=== PATIENT | male | born 1975 | race African-American/Black ===

== ENCOUNTER 2021-09-02 13:51 | Emergency (ER) | payer OTHER, SELFPAY ==
[2021-09-02 14:00] VITALS: BP 115/68; PULSE 80; RESP 16; TEMP 36.6; O2SAT 98
--- NOTE | 2021-09-02 14:01 | ED.SKABFB ---
HPI - Skin/Abscess/Foreign Bdy General Chief complaint: Skin/Abscess/Foreign Body Stated complaint: pos skin abcess Time Seen by Provider: 09/02/21 14:01 Source: patient, RN notes reviewed and old records reviewed Mode of arrival: ambulatory Limitations: no limitations History of Present Illness HPI narrative: 46-year-old male presents to [facility] with complaints of swelling to the right cheek with red raised tissue area since Friday. Patient states that he had a small bump of redness to his cheek on Friday with increase in size starting yesterday. patient states that he has been applying some warm compresses and he has applied some Neosporin ointment to area with no drainage noted. Patient has 2cm X2cm area noted to right cheek with raised red tissue noted, no induration of tissue noted small scab area on bump with no drainage noted. patient denies any fevers, chills or sweats, no body aches voiced, patient has had COVID vaccinations. MD complaint: other (swelling on right cheek) Related Data Allergies Allergy/AdvReac Type Severity Reaction Status Date / Time No Known Allergies Allergy Verified 09/02/21 13:59 Review of Systems Review of Systems: CONSTITUTIONAL: Denies fever, chills, or sweats. EYES: Denies visual changes, redness, or discharge. ENT: Denies rhinorrhea, congestion, sore throat, or otalgia. CARDIOVASCULAR: Denies chest pain, palpitations, or edema. RESPIRATORY: Denies cough or dyspnea. GASTROINTESTINAL: Denies abdominal pain, nausea, vomiting, or diarrhea. GENITOURINARY: Denies dysuria or hematuria. SKIN: Denies rash or itching.Positive for abscess to right cheek MUSCULOSKELETAL: Denies back pain, joint pain, or myalgia. NEUROLOGIC: Denies headache, numbness, or weakness. PSYCHIATRIC: Denies anxiety or depression. All systems reviewed & are unremarkable except as noted in HPI and below PMFSH Family History Family History (Updated 09/02/21 @ 14:18 by Julia Meadows NP) Other Breast cancer Social History Social History (Updated 09/02/21 @ 14:18 by Julia Meadows NP) Smoking status: Never smoker Alcohol intake: never Substance use: current Substance use type: marijuana Living arrangements: with family Gender identity (if verbalized by the patient): Male Comments At time of signature, agree with nursing past medical, surgical, social and family history. There is no relevant family history pertinent to the presenting complaint Exam Narrative: GENERAL: Well-appearing, well-nourished, and in no acute distress. HEAD: Normocephalic, atraumatic. EYES: PERRLA and EOMI. ENT: Nares clear, no rhinorrhea or epistaxis. Mucous membranes moist TM's normal with good light reflex, throat pink with no lesions or exudates, no tonsil swelling, no dental pain or any evidence of oral abscess or gum lesions. NECK: Supple. no lymphadenopathy CHEST: Clear to auscultation. No respiratory distress.SAO2 98% on room air with no tachypnea or accessory muscle use HEART: Regular rate and rhythm. No murmur heard. Normal peripheral pulses. ABDOMEN: Soft, nontender, nondistended, normal active bowel sounds. EXTREMITIES: Normal range of motion. No edema. SKIN: Warm, dry, no rash. raised [id number] red abscess to right cheek with no fluctuation of tissue noted, tenderness to palpation no heat or drainage noted, small scab noted on bump. NEURO: No focal deficits. Alert and oriented x3. Course Vital Signs Vital signs: Vital Signs Temperature 36.6 C 09/02/21 14:00 Pulse Rate 80 09/02/21 14:00 Respiratory Rate 16 09/02/21 14:00 Blood Pressure 115/68 09/02/21 14:00 Pulse Oximetry 98 09/02/21 14:00 Temperature 36.6 C 09/02/21 14:00 Pulse Rate 80 09/02/21 14:00 Respiratory Rate 16 09/02/21 14:00 Blood Pressure 115/68 09/02/21 14:00 Pulse Oximetry 98 09/02/21 14:00 MDM - Skin/Abscess/Foreign Bdy Differential Diagnosis Differential diagnosis: Likely abscess of skin or subcutaneous tis
== END 2021-09-02 14:22 | disposition home or self-care (01) ==
PROVIDERS: Emergency Provider Registered Nurse
DX: L02.01 Cutaneous abscess of face (principal)
CPT/HCPCS: 99213; G0463

== ENCOUNTER 2022-05-28 10:30 | Emergency (ER) | payer OTHER, SELFPAY ==
[2022-05-28] VITALS (16 sets, daily range): BP systolic 153–169; BP diastolic 88–96; PULSE 79–93; RESP 16–34; TEMP 36.5; O2SAT 95–100
--- NOTE | ~2022-05-28 | XR_ITS ---
EXAMINATION: XR chest 1V portable DATE: 05/28/2022 11:36 INDICATION: Seizure. TECHNIQUE: A single frontal view of the chest was obtained. COMPARISON: None. FINDINGS: There are airspace opacities in the lower lung zones. No pleural effusion or pneumothorax. The heart size is normal. IMPRESSION: 1. Airspace opacities in the lower lung zones, consistent with atelectasis versus pneumonia. Reviewed, dictated and finalized at location A. IMPRESSION: 1. Airspace opacities in the lower lung zones, consistent with atelectasis vers us pneumonia.
--- NOTE | ~2022-05-28 | CT_ITS ---
EXAMINATION: CT brain wo con INDICATION: Headache COMPARISON: None TECHNIQUE: Standard unenhanced head CT. The dose-length product (DLP) was 1210.67 mGy-cm. The mA was adjusted according to patient size. Iterative reconstruction technique was employed. FINDINGS: There is no intracranial hemorrhage, acute infarction, or abnormal mass lesion. The ventric les are normal. There is no abnormal mass effect or midline shift. The godinez-white matter differentiat ion is normal. The basal cisterns are patent. The orbits are normal. There is mild mucosal thickening of the paranasal sinuses. IMPRESSION: 1. No acute intracranial abnormality. Reviewed, dictated and finalized at location B.
--- NOTE | 2022-05-28 10:42 | ECG_ITS ---
Measurements Intervals [place] Rate: 90 P: 48 LA: 142 QRS: 48 QRSD: 91 T: 34 QT: 331 QTc: 405 Interpretive Statements SINUS RHYTHM LEFT ATRIAL ENLARGEMENT NONSPECIFIC T-WAVE ABNORMALITY NO PREVIOUS ECG AVAILABLE FOR COMPARISON Electronically Signed On 05-28-2022 12:40:33 CDT by Leif Le M.D.
[2022-05-28 10:52] LABS: Hematocrit 43.1 % (42.0-52.0); Hemoglobin 14.8 g/dL (14.0-18.0); Mean Corpuscular HGB Conc 34.3 g/dl (32-36); Mean Corpuscular Hemoglobin 31.9 pg (26-34); Mean Corpuscular Volume 92.9 fl (80-100); Mean Platelet Volume 9.4 fl (7.4-10.4); Platelet Count Result 417 k/mm3 (150-375); Red Blood Count 4.64 M/mm3 (4.6-6.20); Red Cell Distribution Width 13.4 % (11.5-14.5); White Blood Count 23.5 K/mm3 (4.5-10.0)
[2022-05-28 11:00] LABS: Atypical Lymphocytes Present; Band Neutrophils Percent 1 % (0-6); Lymphocytes Absolute Manual 2.35 K/mm3 (1.1-4.5); Monocytes Absolute Manual 1.17 K/mm3 (0.1-0.90); Monocytes Percent Manual 5 % (3-9); Neutrophils Absolute Manual 19.97 K/mm3 (1.3-6.7); Neutrophils Percent Manual 84 % (46-73); Platelet Estimate Adequate (Adequate); Total Cells Counted 100
--- NOTE | 2022-05-28 11:07 | ED.SEIZURE ---
HPI - Seizure General Chief Complaint: Seizure Stated Complaint: seizure like activity Time Seen by Provider: 05/28/22 10:42 History of Present Illness HPI Narrative: HPI limited due to patient's altered mental status This is a 46-year-old male with no known past medical history, brought into the emergency department by EMS after seizure. The patient's , at bedside, provides history for this patient. She notes this morning the patient was lying in bed after having vomited where he normally wakes up in the morning. She then noted an unusual sound, looked on the patient and saw rhythmic shaking concerning for seizure. Afterwards patient appeared confused and she called EMS. She states this is the fourth time this has occurred. It occurred twice in March, once in April and once today. Each of these episodes happens while the patient is asleep. She denies any known change in the patient's health prior to each of these episodes. She states patient does not drink alcohol or use drugs aside from marijuana. Related Data Allergies Allergy/AdvReac Type Severity Reaction Status Date / Time No Known Allergies Allergy Verified 09/02/21 13:59 Review of Systems Review of Systems: CONSTITUTIONAL: Denies fever, chills, or sweats. EYES: Denies visual changes, redness, or discharge. ENT: Denies rhinorrhea, congestion, sore throat, or otalgia. CARDIOVASCULAR: Denies chest pain, palpitations, or edema. RESPIRATORY: Denies cough or dyspnea. GASTROINTESTINAL: Denies abdominal pain, nausea, vomiting, or diarrhea. GENITOURINARY: Denies dysuria or hematuria. SKIN: Denies rash or itching. MUSCULOSKELETAL: Denies back pain, joint pain, or myalgia. NEUROLOGIC: Denies headache, numbness, dizziness, or weakness. PSYCHIATRIC: Denies anxiety or depression. [facility] Family History Family History (Updated 09/02/21 @ 14:18 by Julia Meadows NP) Other Breast cancer Social History Social History (Updated 09/02/21 @ 14:18 by Julia Meadows NP) Smoking status: Never smoker Alcohol intake: never Substance use: current Substance use type: marijuana Gender identity (if verbalized by the patient): Male Exam Narrative: GENERAL: Well-developed, well-nourished, and in no acute distress. HEAD: Normocephalic, atraumatic. EYES: PERRLA and EOMI. ENT: Abrasion of tongue consistent with tongue biting noted, nares clear, no rhinorrhea or epistaxis. Mucous membranes moist. Oropharynx without tonsillar hypertrophy exudate or other lesions. NECK: Supple. No adenopathy or masses. No carotid bruits or JVD CHEST: Clear to auscultation. No respiratory distress. No wheezes rales or rhonchi HEART: Regular rate and rhythm. No murmur heard. Normal peripheral pulses. ABDOMEN: Soft, nontender, nondistended, normal active bowel sounds. EXTREMITIES: Normal range of motion. No edema. SKIN: Warm, dry, no rash. NEURO: No focal deficits. Alert and oriented x2 (self and place), active in all 4 extremities, sensation intact in all 4 extremities, no noted ataxia, no noted nystagmus PSYCH: Normal mood and affect. Course Course Emergency Course: 12:50 - CMP demonstrates mild hypokalemia (3.3) without other abnormality. CT head not concerning for mass or hemorrhage. Patient is now oriented x3. Will PO challenge and ambulate. If patient tolerates, will discharge with Neurology follow up. 13:31 - Patient ambulated and tolerated p.o. Will discharge with [facility]. Vital Signs Vital signs: Vital Signs Temperature 97.7 F 05/28/22 10:32 Pulse Rate 93 05/28/22 10:32 Respiratory Rate 18 05/28/22 10:32 Blood Pressure 153/92 H 05/28/22 10:32 Pulse Oximetry 97 05/28/22 10:32 Oxygen Delivery Room Air 05/28/22 10:32 Temperature 97.7 F 05/28/22 10:32 Pulse Rate 93 05/28/22 10:37 Respiratory Rate 18 05/28/22 10:32 Blood Pressure 153/92 H 05/28/22 10:32 Pulse Oximetry 100 05/28/22 11:02 Oxygen Delivery Room Air 05/28/22 11:02
[2022-05-28 11:10] LABS: INR 1.1; Prothrombin Time 13.5 Seconds (11.1-14.7)
[2022-05-28 11:11] LABS: Partial Thromboplastin Time 25.9 SECONDS (22.3-36.8)
[2022-05-28] MEDS: PROCHLORPERAZINE EDISYLATE 10 MG/2 ML VIAL IV PUSH (11:50)
[2022-05-28] MEDS: levETIRAcetam 1000MG/NACL100ML 1,000 MG/100 ML BAG 400 MG IVPB (11:55)
[2022-05-28 12:05] LABS: Alanine Aminotransferase 33 U/L (6-50); Albumin Level 4.8 g/dL (3.5-5.1); Alkaline Phosphatase 117 U/L (38-126); Anion Gap 14 mmol/L (8-16); Aspartate Amino Transferase 49 U/L (17-59); Bilirubin,Total 0.5 mg/dL (0.2-1.3); Blood Urea Nitrogen 10 mg/dL (9-20); Calcium 8.9 mg/dL (8.4-10.2); Carbon Dioxide 20 mmol/L (22-30); Chloride 104 mmol/L (98-107); Estimated CRCL calculation 63 ml/min; Estimated Glomerular Filt Rate > 60; Glucose 149 mg/dL (65-110); Potassium 3.3 mmol/L (3.4-5.0); Sodium 138 mmol/L (137-145)
[2022-05-28 12:16] LABS: Troponin I 0.023 ng/mL (0.000-0.034)
--- NOTE | 2022-05-28 12:43 | PC.NURSE ---
Pt unable to eat food due to pain in his tongue. ERP aware.
[2022-05-28] MEDS: LIDOCAINE HCL 2% VISC SOLN 15 ML UDC PO (12:58)
--- NOTE | 2022-05-28 13:22 | PC.NURSE ---
pt resting in bed reports able to drink liquids.
--- NOTE | 2022-05-28 13:30 | PC.NURSE ---
pt ambulated aprx 30ft independently without complaints. pt agreeable to discharge home.
--- NOTE | 2022-05-28 13:46 | PC.NURSE ---
pt given blue scrub top and bottom with socks for discharge home
== END 2022-05-28 13:55 | disposition home or self-care (01) ==
PROVIDERS: Emergency Provider Preventive Medicine Aerospace Medicine
DX: R56.9 Unspecified convulsions (principal); S01.512A Laceration without foreign body of oral cavity, initial encounter; X58.XXXA Exposure to other specified factors, initial encounter
CPT/HCPCS: 36415; 70450; 71045; 80053; 84484; 85025; 85610; 85730; 93005; 96365; 96375; 99284; J0780; J1953

== ENCOUNTER 2023-01-17 02:17 | Observation (INO) | payer OTHER, SELFPAY ==
[2023-01-17] VITALS (35 sets, daily range): BP systolic 113–145; BP diastolic 57–96; PULSE 63–84; RESP 8–24; TEMP 36.2–37; O2SAT 94–100; BMI 25.7
--- NOTE | 2023-01-17 | ECHO_ITS ---
Patient Info Name: Crystal Ling Age: 47 years : 1975 Gender: Male Ht: 67 in Wt: 164 lbs BSA: 1.89 m2 HR: 78 bpm BP: 117 / 60 mmHg Heart Rhythm: Sinus Rhythm Technical Quality: Good Exam Date: 01/17/2023 11:09 AM Exam Location: [facility] Exam Room: [facility] Patient Status: Inpatient Admit Date: 01/17/2023 Staff Ordering Physician: Jessica Dickerson Insurance Clerk: Chelsey Ye RDCS Attending Provider: Yuly Vela DO Referring Physician: Jayla RUSH; Exam Type: CA echo doppler color flow Study Info Indications - syncope bradycardia Complete two-dimensional, color flow and Doppler transthoracic echocardiogram is performed. Summary 1. Complete two-dimensional, color flow and Doppler transthoracic echocardiogram is performed. 2. Left ventricular chamber dimension is normal. 3. Left ventricular systolic function is hyperdynamic, estimated at >70%. 4. There is mildly increased left ventricular wall thickness. 5. Left ventricular septal wall motion is normal. 6. Global longitudinal strain is normal at -20 %. 7. There is mild tricuspid valve regurgitation. 8. No pulmonary hypertension, estimated pulmonary arterial systolic pressure is 26 mmHg. 9. There is trace mitral valve regurgitation. 10. There is no aortic valve stenosis. Left Ventricle Left ventricular chamber dimension is normal. Left ventricular systolic function is hyperdynamic, estimated at >70%. There is mildly increased left ventricular wall thickness. Left ventricular septal wall motion is normal. Global longitudinal strain is normal at -20 %. Right Ventricle Right ventricular chamber dimension is normal. Right ventricular systolic function is normal. Left Atria Left atrial chamber dimension is normal. Right Atria Right atrial chamber dimension is normal. Aortic Valve The aortic valve is trileaflet. There is no aortic valve stenosis. There is no aortic valve regurgitation. Pulmonic Valve The pulmonic valve is normal. There is mild pulmonic regurgitation. Mitral Valve The mitral valve has normal leaflets. There is trace mitral valve regurgitation. Tricuspid Valve The tricuspid valve leaflets are normal. There is mild tricuspid valve regurgitation. No pulmonary hypertension, estimated pulmonary arterial systolic pressure is 26 mmHg. Pericardium/Pleural The pericardium appears normal. No constrictive pericarditis present. Inferior Vena Cava Normal inferior vena cava with >50% collapse upon inspiration consistent with normal right atrial pressure, 5 mmHg. Aorta The aortic root size at the sinus of Valsalva is normal. Left Ventricular Outflow Tract Name Value Normal LVOT 2D LVOT Diameter 2.0 cm LVOT Doppler LVOT Peak Gradient 6 mmHg LVOT Mean Gradient 3 mmHg LVOT VTI 24 cm LVOT VTI/AV VTI Ratio 1.0 LVOT Stroke Volume 75 ml LVOT CO 15.8 l/min LVOT CI
--- NOTE | ~2023-01-17 | CT_ITS ---
Noncontrast CT scan of the cervical spine Technique: Multiple contiguous axial [address] images of the cervical spine were obtained and rec onstructed in 2D sagittal and coronal planes on the acquisition scanner. Dose reduction technique was used on this scan by utilizing automated exposure control, adjustment of the mA and/or kV according to patient size. Clinical History: Pain Findings: No fractures or dislocations. There is mild reversal of the normal cervical lordosis. Mult ilevel small disc osteophyte complexes are present in the cervical spine. No emilie spinal canal steno sis or cord compression evident. No prevertebral soft tissue swelling. Impression: No fracture or subluxation of the cervical spine. Minimal degenerative spondylosis. Reviewed, dictated and finalized at location . Impression: No fracture or subluxation of the cervical spine. Minimal degenerative spondylosis.
[2023-01-17] MEDS: levETIRAcetam 1000MG/NACL100ML 1,000 MG/100 ML BAG 400 MG IVPB (02:47)
--- NOTE | 2023-01-17 03:45 | ECG_ITS ---
Measurements Intervals [place] Rate: 74 P: 61 IN: 132 QRS: 49 QRSD: 94 T: 7 QT: 367 QTc: 408 Interpretive Statements SINUS RHYTHM POSSIBLE LEFT ATRIAL ENLARGEMENT ST ELEVATION, PROBABLY EARLY REPOLARIZATION [ST ELEVATION WITH NORMALLY INFLECTED T WAVE] BORDERLINE ECG COMPARED TO ECG 01/17/2023 02:25:54 NO SIGNIFICANT CHANGES Electronically Signed On 01-17-2023 16:43:11 CDT by Jayden Allen M.D.
--- NOTE | 2023-01-17 03:45 | ECG_ITS ---
Measurements Intervals [place] Rate: 65 P: 19 OR: 130 QRS: 51 QRSD: 92 T: 17 QT: 360 QTc: 376 Interpretive Statements SINUS RHYTHM ST ELEVATION, PROBABLY EARLY REPOLARIZATION BORDERLINE ECG COMPARED TO ECG 05/28/2022 10:39:42 ST (T WAVE) DEVIATION NOW PRESENT Electronically Signed On 01-17-2023 16:41:25 CDT by Jayden Allen M.D.
[2023-01-17 03:49] LABS: Alanine Aminotransferase 34 U/L (6-50); Albumin Level 4.5 g/dL (3.5-5.1); Alkaline Phosphatase 101 U/L (38-126); Anion Gap 11 mmol/L (8-16); Aspartate Amino Transferase 35 U/L (17-59); Bilirubin,Total 0.6 mg/dL (0.2-1.3); Blood Urea Nitrogen 14 mg/dL (9-20); Calcium 9.2 mg/dL (8.4-10.2); Carbon Dioxide 21 mmol/L (22-30); Chloride 106 mmol/L (98-107); Estimated CRCL calculation 65 ml/min; Estimated Glomerular Filt Rate > 60; Glucose 179 mg/dL (65-110); Magnesium 2.1 mg/dL (1.6-2.3); Potassium 3.4 mmol/L (3.4-5.0); Sodium 138 mmol/L (137-145)
[2023-01-17] MEDS: PROCHLORPERAZINE EDISYLATE 10 MG/2 ML VIAL IV PUSH (04:02)
[2023-01-17 04:42] LABS: Prothrombin Time 12.9 Seconds (11.1-14.7)
[2023-01-17 04:43] LABS: Partial Thromboplastin Time 28.9 SECONDS (22.3-36.8)
--- NOTE | 2023-01-17 04:57 | ED.GENADULT ---
HPI - General Adult General Chief complaint: Seizure Stated complaint: seizure Time Seen by Provider: 01/17/23 02:20 History of Present Illness HPI narrative: 47-year-old gentleman who presents the emergency department with chief complaint of seizure. Per the family he had 2 seizures that lasted approximately 9 minutes at home patient regained consciousness and upon arrival to the emergency department is back to his baseline neurological status. Patient reports that he has had no chest pain or shortness of breath denies any viral illness does report that he has had issues with his medications this week and has gone several days without them. Patient normally takes Keppra in the evening Related Data Allergies Allergy/AdvReac Type Severity Reaction Status Date / Time No Known Allergies Allergy Verified 01/17/23 02:45 Review of Systems Review of Systems: A 10 system review of systems was completed on the patient and is negative except for what is stated in the HPI. Nursing and ancillary documentation was reviewed. [facility] Family History Family History Other Breast cancer Social History Social History (Updated 09/18/22 @ 14:14 by Lindsey Gonzalez MA) Smoking status: Former smoker Tobacco type: cigarettes Smoking end date: 09/09/12 Alcohol intake: current Alcohol use details: ocassionally Substance use: current Substance use type: marijuana Lack of Transportation: No Lack of Food: Never True Current Housing: I Have Housing Concerned About Future Housing: No Difficulty Paying Gas/Electric Bills: No Difficulty Paying for Meds: No Currently Unemployed: No Education: Trade/Vocational Certificate Difficulty w/ Childcare or Family Care: No Living arrangements: with family Gender identity (if verbalized by the patient): Male Exam Narrative: GENERAL: Well-appearing, well-nourished, and in no acute distress. HEAD: Normocephalic, atraumatic. EYES: PERRLA and EOMI. ENT: Nares clear, no rhinorrhea or epistaxis. Mucous membranes moist. NECK: Supple. CHEST: Clear to auscultation. No respiratory distress. HEART: Regular rate and rhythm. No murmur heard. Normal peripheral pulses. ABDOMEN: Soft, nontender, nondistended, normal active bowel sounds. EXTREMITIES: Normal range of motion. No edema. SKIN: Warm, dry, no rash. NEURO: No focal deficits. Alert and oriented x3. PSYCH: Normal mood and affect. Course Vital Signs Vital signs: Vital Signs Temperature 36.5 C 01/17/23 02:19 Pulse Rate 74 01/17/23 02:19 Respiratory Rate 16 01/17/23 02:19 Blood Pressure 120/74 01/17/23 02:19 Pulse Oximetry 98 01/17/23 02:19 Oxygen Delivery Room Air 01/17/23 02:19 Temperature 36.5 C 01/17/23 02:19 Pulse Rate 68 01/17/23 05:28 Respiratory Rate 16 01/17/23 05:28 Blood Pressure 134/92 H 01/17/23 05:28 Pulse Oximetry 100 01/17/23 05:28 Oxygen Delivery Room Air 01/17/23 02:37 Medical Decision Making MDM Narrative Medical decision making narrative: Differential diagnosis includes seizure, dysrhythmia, electrolyte abnormality Laboratory studies were obtained which did not show significant metabolic abnormality Magnesium was normal potassium was 3.4 EKG showed LVH While in the emergency department the patient had an episode where he became unresponsive and had significant bradycardia. The patient showed a rate of approximately 20 afterwards the patient's heart rate came back to normal sinus rhythm with a rate of 63 Case was discussed with the hospitalist who recommended that the patient have a cardiology consult while inpatient Case was discussed with Dr. Aguilar who will see the patient in the inpatient setting Vital Signs Vital Signs: Vital Signs Temperature 36.5 C 01/17/23 02:19 Pulse Rate 74 01/17/23 02:19 Respiratory Rate 16 01/17/23 02:19 Blood Pressure 120/74 01/17/23 02:
[2023-01-17 05:25] LABS: Basophils Absolute Auto 0.1 K/mm3 (0.0-0.1); Basophils Percent Auto 0.3 % (0.2-1.2); Eosinophils Absolute Auto 0.2 K/mm3 (0-0.3); Eosinophils Percent Auto 1.3 % (0-4.4); Hematocrit 43.2 % (42.0-52.0); Hemoglobin 14.8 g/dL (14.0-18.0); Immature Granulocyte Absolute 0.06 K/mm3 (0.00-0.031); Immature Granulocyte Percent A 0.4 % (0-0.5); Lymphocytes Absolute Auto 4.94 K/mm3 (0.9-3.2); Lymphocytes Percent Auto 29.8 % (18.3-44.2); Mean Corpuscular HGB Conc 34.3 g/dl (32-36); Mean Corpuscular Hemoglobin 31.8 pg (26-34); Mean Corpuscular Volume 92.7 fl (80-100); Mean Platelet Volume 9.8 fl (7.4-10.4); Monocytes Absolute Auto 1.2 K/mm3 (0.1-0.6); Monocytes Percent Auto 7.3 % (2.6-8.5); Neutrophils Absolute Auto 10.1 K/mm3 (1.3-6.7); Neutrophils Percent Auto 60.9 % (45.5-73.1); Platelet Count Result 418 k/mm3 (150-375); Red Blood Count 4.66 M/mm3 (4.6-6.20); White Blood Count 16.6 K/mm3 (4.5-10.0)
--- NOTE | 2023-01-17 06:55 | ADMGEN ---
This patient, Crystal Ling, was admitted to IMU Room 205-02. Patient/family oriented to hospital policies and general routines including ID bracelet, bed and alarms, visiting hours, pain management, procedures, bathroom and other care routines, personal items, smoking policy, room service/diet, and visiting hours. Information on how to activate the Rapid Response Team has been discussed. Patient/Family are encouraged to report perceived risks to care and to ask questions if they do not understand what they are told or what they should do.
--- NOTE | 2023-01-17 07:04 | PC.NURSE ---
At 0345 and 0607 patient had bradycardic episodes into the 30-40 bpm. No medicinal intervention necessary. Patient's heart rate increased when aroused. EDP at bedside both times.
[2023-01-17 08:00] LABS: Troponin I < 0.012 ng/mL (0.000-0.034)
[2023-01-17 11:08] LABS: Appearance Urine Clear (Clear); Bilirubin Urine Negative (Negative); Blood Urine Negative (Negative); Color Urine Yellow (Yellow); Glucose Urine UA Negative (Negative); Ketones Urine Negative (Negative); Leukocyte Esterase Ur Negative LEU/UL (Negative); Nitrate Urine Negative (Negative); Protein Urine Negative (Negative); Specific Grav Ur 1.016 (1.001-1.035); pH Urine 6.5 (5.0-9.0)
[2023-01-17 11:19] LABS: Add Urine Microscopic? NO
--- NOTE | 2023-01-17 11:45 | PM.CNCAR ---
Assessment and Plan Assessment and plan (1) Bradycardia: Code(s): R00.1 - Bradycardia, unspecified Status: Acute Assessment and Plan: Episode of symptomatic junctional bradycardia captured on telemetry in the emergency department this morning. Patient has had complaints of syncope for years but attributed this to seizure disorder. Permanent pacemaker is indicated in this setting. However, patient is hemodynamically stable and by his history does not experience symptoms frequently. Therefore, it is safe to discharge the patient home and schedule pacemaker implantation as an outpatient. Echocardiogram obtained shows normal left ventricular systolic function with no valvular abnormalities. Therefore, no indication for bi V ICD, will plan to proceed withn permanent pacemaker implantation as an outpatient within the next couple of weeks. History of Present Illness History of Present Illness Consult date/time: 01/17/23 11:45 Requesting physician: Jose Ferro MD Consult reason: Other (bradycardia ) Reason For Visit: Seizure/Bradycardic Episode Narrative: Mr. Ling is a 47-year-old male with a history of seizure disorder. He presented to the emergency department early this morning following a seizure witnessed by his . While in the emergency department, his states that his eyes rolled back in his head and he loss consciousness for about a minute. At the same time on telemetry patient was noted to be in a junctional bradycardia with a rate in the 30s. Patient does not have any known history of Hector arrhythmias or any cardiac problems. He does state that he is had multiple syncopal episodes over the years but has attributed them to seizures. His states that his diagnosis with a seizure disorder is recent but patient had self-diagnosed a seizure disorder about 10 years ago. He has only been on anti epileptics since July of last year. He denies any family history of sudden cardiac . Denies any chest pain, palpitations, shortness of breath, swelling, orthopnea, paroxysmal nocturnal dyspnea. At the time of my interview he is lying comfortably in bed with no complaints. Review of Systems Review of Systems: All systems reviewed & are unremarkable except as noted in HPI and below PMFSH Past Medical History Medical History (Updated 01/17/23 @ 12:41 by Jose Lovell MD) Seizure Surgical History Surgical History (Updated 01/17/23 @ 12:35 by Jose Lovell MD) No history of previous surgery Family History Family History Other Breast cancer Social History Social History (Updated 01/17/23 @ 12:35 by Jose Lovell MD) Smoking status: Former smoker Tobacco type: cigarettes Smoking end date: 09/09/12 Alcohol intake: never Alcohol use details: ocassionally Substance use: current Substance use type: marijuana Lack of Transportation: No Lack of Food: Never True Current Housing: I Have Housing Concerned About Future Housing: No Difficulty Paying Gas/Electric Bills: No Difficulty Paying for Meds: No Currently Unemployed: No Education: High School Diploma/GED Difficulty w/ Childcare or Family Care: No Living arrangements: with family Gender identity (if verbalized by the patient): Male Spiritual care concerns: No Meds Home Medications and Allergies Home Medications Medication Instructions Recorded Confirmed Type levetiracetam 500 mg 1,000 mg PO QHS 01/17/23 01/17/23 History tablet,extended release 24 hr (Keppra XR) Allergies Allergy/AdvReac Type Severity Reaction Status Date / Time No Known Allergies Allergy Verified 01/17/23 02:45 Vital Signs Vital Signs - 24 hr 01/17/23 02:19 01/17/23 02:37 01/17/23 02:39 Temperature 36.5 C Pulse Rate 74 73 Respiratory Rate 16 10 L Blood Pressure 120/74 Pulse Oximetry 98 100 100 O
--- NOTE | 2023-01-17 12:20 | PM.IMHP ---
H&P: HPI History of Present Illness Date/Time: 01/17/23 12:20 Chief Complaint: Seizure Narrative: 47-year-old male with a history of seizures brought to emergency room after having a seizure. Patient has had seizures since childhood but infrequent usually occuring once every 10 years. He noted increasing seizure activity last June 2022 and was started on medications at that time. He was on Keppra 500 mg q.12 hours but was switched to extended release Keppra 100mg QHS in September. His last seizure was in June. Patient has been compliant with his medications up until 2 days ago when he ran out of medications. He missed 2 doses of his Keppra. While sleeping patient had 2 seizures lasting approximately 9 minutes. He bit his tongue and had urine incontinence. He denies any aura but does mention that he has occasional stomach ache prior to the onset of seizures which did occur this time as well. His has picked up his medication and the Keppra is available at home at this time. He denies any new medications. No new depm-oed-gfgphpn medications. He does smoke marijuana but denies any other drug use. Occasional alcohol use. No complaints of chest pain, lightheadedness with standing, cough, headache, vision changes, hearing changes, odynophagia, dysphagia, nausea, vomiting, melena, hematochezia, dysuria or hematuria. Patient present to the emergency room for evaluation. In the ED, vital signs are stable. White count was 16 K. serum bicarb was 21 and glucose of 179. Urinalysis was clear. Cervical spine CT showed no acute findings. While in the emergency room, patient had an episode where became unresponsive and had significant bradycardia. Patient showed a heart rate of approximately 20 beats per minute that recovered. EKG showed normal sinus rhythm with anterior lateral ST elevation, probably repolarization. He was given a dose of IV Keppra. He was admitted to the IMU for further care. Review of Systems Review of Systems: All systems reviewed & are unremarkable except as noted in HPI and below PMFSH Past Medical History Medical History (Updated 01/17/23 @ 12:41 by Jose Lovell MD) Seizure Surgical History Surgical History (Updated 01/17/23 @ 12:35 by Jose Lovell MD) No history of previous surgery Family History Family History Other Breast cancer Social History Social History (Updated 01/17/23 @ 12:35 by Jose Lovell MD) Smoking status: Former smoker Tobacco type: cigarettes Smoking end date: 09/09/12 Alcohol intake: current Alcohol use details: ocassionally Substance use: current Substance use type: marijuana Lack of Transportation: No Lack of Food: Never True Current Housing: I Have Housing Concerned About Future Housing: No Difficulty Paying Gas/Electric Bills: No Difficulty Paying for Meds: No Currently Unemployed: No Education: Trade/Vocational Certificate Difficulty w/ Childcare or Family Care: No Living arrangements: with family Gender identity (if verbalized by the patient): Male Meds Home Medications and Allergies Home Medications Medication Instructions Recorded Confirmed Type levetiracetam 500 mg 500 mg PO QHS 01/17/23 01/17/23 History tablet,extended release 24 hr (Keppra XR) Allergies Allergy/AdvReac Type Severity Reaction Status Date / Time No Known Allergies Allergy Verified 01/17/23 02:45 Vital Signs Vital Signs - 24 hr 01/17/23 02:19 01/17/23 02:37 01/17/23 02:39 Temperature 97.7 F Pulse Rate 74 73 Respiratory Rate 16 10 L Blood Pressure 120/74 Pulse Oximetry 98 100 100 Oxygen Delivery Room Air Room Air 01/17/23 02:45 01/17/23 02:46 01/17/23 03:00 Temperature Pulse Rate 76 74 75 Respiratory Rate 8 L 14 23 H Blood Pressure 120/73 Pulse Oximetry 94 Oxygen Delivery 01/17/23 03:01 01/17/23 03:02
[2023-01-17 12:25] LABS: Troponin I < 0.012 ng/mL (0.000-0.034)
[2023-01-17] MEDS: levETIRAcetam 500 MG TABLET PO ×2 (13:13→21:04)
[2023-01-17 13:14] LABS: Hemoglobin A1C 4.9 % (<5.7)
[2023-01-17 13:34] LABS: Amphetamine Screen Urine Negative (Negative); Barbiturate Screen Urine Negative (Negative); Benzodiazepines Screen Urine Negative (Negative); Cannabinoid Screen Urine Positive (Negative); Cocaine Screen Urine Negative (Negative); Methadone Screen Urine Negative (Negative); Opiate Screen Urine Negative (Negative); Phencyclidine Screen Urine Negative (Negative)
--- NOTE | 2023-01-17 13:34 | PCCCNOTE ---
On 01/17/23, the student, [Alanna Schneider], provided care and completed [facility] documentation on this patient. I have reviewed the student's documentation and agree with the findings.
[2023-01-17 17:05] LABS: Glucose Point of Care 104 mg/dl (65-105)
[2023-01-17] MEDS: CHLORHEXIDINE GLUCONATE 0.12% ORAL RINSE 473 ML BTL (*BKC) 15 ML SWISH/SPIT (17:50)
[2023-01-17 21:40] LABS: Glucose Point of Care 101 mg/dl (65-105)
[2023-01-18] VITALS (9 sets, daily range): BP systolic 110–126; BP diastolic 55–70; PULSE 61–75; RESP 16–20; TEMP 36.4–36.8; O2SAT 96–100
[2023-01-18 08:01] LABS: Glucose Point of Care 103 mg/dl (65-105)
[2023-01-18] MEDS: levETIRAcetam 500 MG TABLET PO (09:15)
[2023-01-18] MEDS: CHLORHEXIDINE GLUCONATE 0.12% ORAL RINSE 473 ML BTL (*BKC) 15 ML SWISH/SPIT (09:16)
--- NOTE | 2023-01-18 09:57 | WPDNEURCNPN ---
Assessment and Plan Assessment and plan (1) Seizure: Code(s): R56.9 - Unspecified convulsions Status: Acute (2) Bradycardia: Code(s): R00.1 - Bradycardia, unspecified Status: Acute (3) Marijuana smoker: Code(s): F12.90 - Cannabis use, unspecified, uncomplicated Status: Acute Plan Mr. Ling is a 47 year old male with a history of epilepsy presenting with breakthrough seizures in the setting of medication non-compliance. Could also be provoked by marijuana use. However, he did have two unprovoked seizures over the past two months so dose adjustment is warranted. - Increase Keppra to 1500mg ER qhs (750mg BID while in hospital) - MRI brain and routine EEG were ordered at last visit, asked patient to complete as outpatient - Discussed importance of medication compliance and restriction of no driving until seizure free for 6 months Consult date: 01/18/23 Reason for consult: Seizure HPI: Crystal Ling is a 47 year old male with a history of epilepsy presenting due to seizure. Patient has a history of seizures since childhood, that worsened in 2021. He was started on Keppra 500mg BID. The seizures are described as GTC with tongue biting, and he is post-ictal afterwards. He also has associated vomiting. Patient is a patient of mine. Due to side-effects, decision was made to switch Keppra to 1000mg ER at bedtime only. Between September 2022 to this admission, patient has had two other breakthrough seizures, although he did not miss any doses of medication around those days. Patient was compliant with his Keppra until two days ago when he ran out of medication. He missed a total of two doses of Keppra. Patient reportedly had two seizures lasting close to ten minutes. He did have tongue biting and urinary incontinence. He denies any signs of illness. CT head was unrevealing. His lab work was unremarkable as well. In the Ed, patient had an episode of unresponsiveness with bradycardia down to 20s that self resolved. Urine drug screen was positive for cannabinoids. Review of Systems Constitutional: Constitutional: Reports no additional constitutional complaints Eyes: Eyes: Reports no additional eye complaints ENT: Reports system reviewed and no additional complaints, except as documented Cardiovascular: Cardiovascular: Reports no additional cardiovascular complaints Respiratory: Respiratory: Reports no additional respiratory complaints Gastrointestinal: Gastrointestinal: Reports no additional gastrointestinal complaints Genitourinary: Genitourinary: Reports no additional male genitourinary complaints Musculoskeletal: Musculoskeletal: Reports no additional musculoskeletal complaints Integumentary/Breasts: Skin/Breast: Reports system reviewed and no additional complaints, except as docu Neurologic: Reports as per HPI Psychiatric: Psychiatric: Reports no additional psychiatric complaints PMFSH Past Medical History Medical History Seizure Surgical History Surgical History No history of previous surgery Family History Family History Other Breast cancer Social History Social History Smoking status: Former smoker Tobacco type: cigarettes Smoking end date: 09/09/12 Alcohol intake: never Alcohol use details: ocassionally Substance use: current Substance use type: marijuana Lack of Transportation: No Lack of Food: Never True Current Housing: I Have Housing Concerned About Future Housing: No Difficulty Paying Gas/Electric Bills: No Difficulty Paying for Meds: No Currently Unemployed: No Education: High School Diploma/GED Difficulty w/ Childcare or Family Care: No Living arrangements: with family Gender identity (if verbalized by the patient): Mal
[2023-01-18 11:36] LABS: Glucose Point of Care 91 mg/dl (65-105)
--- NOTE | 2023-01-18 12:56 | PM.PNCARD ---
Progress Note: A&P Assessment and Plan (1) Bradycardia: Code(s): R00.1 - Bradycardia, unspecified Status: Acute Assessment and Plan: Patient had 2 episodes of bradycardia in the emergency room, the 2nd occurring at 6:07 a.m. a few hours after he was given IV Compazine and seeral hours after he was given IV Keppra. The episode for which we have documentation suggests sinus bradycardia then transient wider complex (idioventricular rhythm). His history is not consistent with syncope secondary to bradycardia but more consistent with a history of seizures. It is unclear, but I wonder if his bradycardia in the emergency room may be an incidental finding, related to sleep, sleep apnea and perhaps the Compazine which can rarely cause Hector arrhythmias. He is otherwise a young man with a normal-appearing heart and it would be unusual to have significant bradyarrhythmias. --evaluate for sleep apnea --consider implantation of a loop recorder rather than pacemaker (2) Seizure: Code(s): R56.9 - Unspecified convulsions Status: Acute Assessment and Plan: Long h/o sz and some med noncompliance (3) Abnormal EKG: Code(s): R94.31 - Abnormal electrocardiogram [ECG] [EKG] Status: Acute Assessment and Plan: Pt has early repolarization on EKG. Doubt Brugada syndrome. Subjective Date/time seen: Follow-up for patient with longstanding seizures, who was admitted with seizures. Loaded with Keppra. Follow-up for bradycardia. 01/18/23 12:56 Mr. Ling had 2 episodes of bradycardia in the emergency room described as heart rates going to the 30s to 40s by ICE CREAM DISPENSER in the emergency room when sleeping at 345 a.m. and later at 6:07 a.m.. Have been given a dose of Compazine at 3:48 a.m. Heart rate increased after being aroused per RN; ER MD notes say that he became unresponsive w/ the later episode. Rhythm strip for the 1st event is not available but for the event at 6:07 a.m. the patient was in a sinus bradycardia rate in the 40s than developed a junctional rhythm or perhaps idioventricular rhythm with a heart rate that appears to be around 20 BPM. Since then the patient has not had any significant bradycardia. The patient's seizures I sometimes preceded by nausea, stomach pain and a feeling of being hot and not right. After seizures he is confused and ?out of it? for while and has no memory of the seizures. They are not preceded by any lightheadedness, fainting, seeing stars or visual problems, or presyncopal feeling. The patient does snore but has not been told that he has any apneic episodes at night and does not have excessive daytime sleepiness. Review of Systems Constitutional: Constitutional: Denies fever(s) Eyes: Eyes: Reports no additional eye complaints ENT: Denies epistaxis Cardiovascular: Cardiovascular: Denies chest pain, Denies pedal edema, Denies lightheadedness and Denies dyspnea Respiratory: Respiratory: Denies chest congestion and Denies dyspnea Gastrointestinal: Gastrointestinal: Denies abdominal pain and Denies hematochezia Musculoskeletal: Musculoskeletal: Reports no additional musculoskeletal complaints Integumentary/Breasts: Skin/Breast: Reports system reviewed and no additional complaints, except as docu Neurologic: Reports system reviewed and no additional complaints, except as documented, Denies behavioral changes and Denies confusion Psychiatric: Psychiatric: Denies behavioral changes and Denies confusion Exam Const: General: cooperative, healthy appearing and comfortable; No confusion Orientation/consciousness: oriented to person, patient oriented x3 and No confusion HENMT: Mouth: Yes moist mucous membranes Eyes: General: appearance normal, both eyes and all related structures Neck: Neck: supple Resp: Effort & Inspection: normal respiratory effort Auscultation: clear to auscultation bilaterally Cardio: Rate: regular rate Rhythm: regula
--- NOTE | 2023-01-18 15:33 | PM.DS ---
DS: Admitting Diagnosis Discharge Date 01/18/23 Admitting Diagnosis Seizure DS: Discharge Diagnosis Discharge Diagnosis (1) Seizure: Code(s): R56.9 - Unspecified convulsions Status: Acute (2) Bradycardia: Code(s): R00.1 - Bradycardia, unspecified Status: Acute (3) Marijuana smoker: Code(s): F12.90 - Cannabis use, unspecified, uncomplicated Status: Acute (4) Hyperglycemia: Code(s): R73.9 - Hyperglycemia, unspecified Status: Acute DS: Summary Hospital Course Reason for hospitalization: 47-year-old male with a history of seizures brought to emergency room after having a seizure.??Please see H&P for details. Hospital Course: Patient was admitted to the IMU. While in the ED, he had an episode of bradycardia with HR dropping into the 40's. This was noted at 340am and again at 615am. No rhythm strips noted for 340am but strips at 615am showing junctional rhythm. He did receive compazine 10mg IV once around 340am. He was symptomatic at 615am. Pateint was also loaded on Keppra. [place] the breakthrough seizure related to being off his medications for 2 days. His home Keppra dose was increased to Keppra ER 1500mg QHS. Compliance was stressed. Patient had a metabolic acidosis which is not unexpected given his prolonged seizure prior to admission. This also explains the elevated glucose. A1c normal. He was monitored on telemetry and no further episodes noted. Cardiology and Neurology consulted and appreciate their input. Cardiology considered pacemaker but symptoms occurred during sleep so plan is to place a loop recorder as an outpatient. Urine drug screen was positive for marijuana and he was educated about the benefits of abstaining from marijuana use since this might be contributing to his seizures. Echo was normal with EF >70%. He overall did well and was able to be discharged home on 01/18/23. Status at Discharge Cognitive/behavioral status at discharge: stable Time Spent with Patient Time attestation: Total time spent providing and/or coordinating discharge services: 35 minutes Time spent: Greater than 30 minutes Exam Narrative: AF 97.8 110/70 64 20 96% ra Gen - NARD Chest - CTA bilaterally, nml RR CV - RRR S1/S2 Abd - Soft, NT/ND, Positive BS Ext - No pedal edema Neuro - Alert and oriented. Nonfocal exam. Psych - Nml mood and affect Skin - Warm and dry DS: Data Data Completed and Pending Labs on day of discharge: Labs from last 24 hours 01/18/23 01/18/23 01/17/23 11:22 07:40 20:04 POC Capillary Glucose 91 103 101 01/17/23 17:00 POC Capillary Glucose 104 Discharge Plan Discharge Attending physician on discharge: Jose Lovell Consulting providers: Iftikhar Aguilar ; Karol Lance Discharging Clinician: Jose Lovell Anticipated Discharge Date/Time: 01/18/23 16:03 Patient Disposition: Home, Self-Care Activity: no straining and no driving Diet: regular Discharge Instructions: Contact your doctor or call 911 and come to the Emergency Room if you have recurrent seizure, pass out or other worrisome symptoms. Avoid marijuana use Follow-up with your primary care provider in 1-2 weeks. Please call for appointment. Follow-up with Cardiology in 1-2 weeks. Please call for appointment. Follow-up with Neurology in 4-6 weeks. Please call for appointment. Thank you for using [facility] for your health care needs. Patient Instructions: Antibiotic Form Stand Alone Forms: General Discharge Information Follow-up/Referrals: Iftikhar Aguilar MD [Physician] - Call for Appointment Sorin Perkins MD [Primary Care Provider] - Call for Appointment Karol Lance MD [Physician] - Call for Appointment Discharge Medications: Changed levetiracetam [Keppra XR] 500 mg tablet extended release 24 hr 1,500 mg PO QHS Qty: 90 1RF Date of admission: 01/17/23 05:35 Primary Care Provider
== END 2023-01-18 16:32 | disposition home or self-care (01) ==
LOC: ANHED 05:24 → ANHIMU 07:10
PROVIDERS: Internal Medicine; Admitting Provider Internal Medicine; Emergency Provider Emergency Medicine; PCP Family Medicine; Visit Provider Internal Medicine
DX: R56.9 Unspecified convulsions (principal); R00.1 Bradycardia, unspecified; I07.1 Rheumatic tricuspid insufficiency; M54.2 Cervicalgia; D72.829 Elevated white blood cell count, unspecified; R73.9 Hyperglycemia, unspecified; R94.31 Abnormal electrocardiogram [ECG] [EKG]; Z87.891 Personal history of nicotine dependence; F10.90 Alcohol use, unspecified, uncomplicated; F12.90 Cannabis use, unspecified, uncomplicated; Z79.899 Other long term (current) drug therapy
CPT/HCPCS: 36415; 72125; 80053; 80307; 81003; 82948; 83036; 83605; 83735; 84484; 85025; 85610; 85730; 93005; 93306; 96365; 96375; 99285; A4248; A9270; G0378; J0461; J0780; J1953

== ENCOUNTER 2023-02-14 01:18 | Day surgery (SDC) | payer OTHER, SELFPAY ==
[2023-02-13 15:05] VITALS: BMI 28.4
[2023-02-14] VITALS (8 sets, daily range): BP systolic 117–145; BP diastolic 78–89; PULSE 55–62; RESP 12–16; TEMP 36.5; O2SAT 97–100; BMI 28.5
--- NOTE | 2023-02-14 13:21 | P.PCNCC_ITS ---
Cardiac Cath Procedure Note Date of procedure:: 02/14/23 Performing physician:: Diogo Muñiz MD Indication:: Recent syncopal episode Brief clinical history:: this is a 47-year-old patient with a history of a seizure disorder recently had a syncopal episode associated with Hector arrhythmias. Pacemaker implantation was considered/recommended the patient however desired further monitoring before making that decision. A loop recorder implant has been is therefore scheduled for today Procedure Procedure performed:: implantation of Medtronic Linq loop recorder Sedation/Medication given:: no sedation Access site:: left anterior chest wall Estimated blood loss:: minimal Procedure note:: patient was brought to cardiac catheterization lab holding area where the left anterior chest wall was prepped and draped in the sterile fashion. The nelia was made on the chest wall in the midclavicular line in the 4th intercostal space 1% lidocaine was then infiltrated locally in this region and then using the supplied insertion kit the puncture blade was used to create a stab wound at the previously placed nelia. Using the insertion tool the Medtronic LINQ device was then implanted subcutaneously. Appropriate sensing was demonstrated using the wireless analyzer. Following this local pressure was held following that a drop a bio glue and a Band-Aid was placed at the insertion site. Findings:: The patient received a Medtronic LINQ 2 [id number] serial number [id number]. R-waves are sensed at 0.18 millimole Conclusion:: successful uncomplicated implantation of Medtronic LINQ 2 loop recorder in this 47-year-old a seizure disorder and syncope with questionable significance of Hector arrhythmias. Diogo Muñiz MD [facility]
== END 2023-02-14 14:18 | disposition home or self-care (01) ==
PROVIDERS: PCP Family Medicine; Visit Provider Specialist
PROC: (CPT 33285; principal; 2023-02-14 13:00)
DX: I49.5 Sick sinus syndrome (principal); R55 Syncope and collapse; G40.909 Epilepsy, unspecified, not intractable, without status epilepticus
CPT/HCPCS: 33285; C1764

== ENCOUNTER 2023-08-08 14:47 | Outpatient (CLI) | payer OTHER, SELFPAY ==
--- NOTE | ~2023-08-08 | MR_ITS ---
EXAMINATION: MR brain/brain stem wo con DATE: 08/08/2023 15:44 INDICATION: Seizure workup TECHNIQUE: Magnetic resonance imaging (MRI) of the brain and brainstem was performed without intraven ous contrast. Sequences included sagittal and axial T1-weighted SE, axial diffusion-weighted FS SE, a xial T2*-weighted GRE, axial T2-weighted FLAIR Propeller, axial T2-weighted Propeller, coronal T2-sharlene ghted FLAIR, and coronal T1-weighted 3D FSPGR. Apparent diffusion coefficient (ADC) maps were created . COMPARISON: Head CT dated 05/28/2022 FINDINGS: There are no areas of restricted diffusion to suggest acute infarction. No abnormal intracranial mass lesion. There are 2 curvilinear tracks of susceptibility artifact extending from the region of the a nterior horn of the right lateral across the anterior right frontal lobe just medial margin along the falx with corresponding linear increased T2 signal consistent with stigmata of chronic blood product s in the setting of cavernoma associated with a couple developmental venous anomalies. There is an ad ditional isolated tiny focus of susceptibility artifact in the right temporal lobe white matter There are no intraparenchymal signal abnormalities seen on the other pulse sequences. Bilateral hippocampi appear normal. No godinez matter heterotopias or other evident neuronal migrational abnormalities. The ventricles are symmetric and normal in size. There are no abnormal extra-axial fluid collections. Kirk w voids are seen in the cerebral arteries on the T2-weighted sequences consistent with their expected patency. Mucosal thickening in the bilateral ethmoid sinuses. Visualized orbits and soft tissues are unremarkable. IMPRESSION: 1. 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 2. Additional isolated nonspecific tiny focus of susceptibility artifact in the right temporal lobe c onsistent with sequela of chronic microhemorrhage which could be due to hypertension or an additional cavernoma. Reviewed, dictated and finalized at location A. IMPRESSION: 1. A couple developmental venous anomalies with susceptibility artifact consist ent with associated cavernoma in the anterior right frontal lobe. 2. Additional isolated nonspecific tiny focus of susceptibility artifact in the right temporal lobe consistent with sequela of chronic microhemorrhage which c ould be due to hypertension or an additional cavernoma.
== END 2023-08-08 14:48 | disposition home or self-care (01) ==
PROVIDERS: PCP Family Medicine; Visit Provider Student in an Organized Health Care Education/Training Program
DX: R56.9 Unspecified convulsions (principal); R93.0 Abnormal findings on diagnostic imaging of skull and head, not elsewhere classified
CPT/HCPCS: 70551